=== PATIENT | female | born 1995 | race Caucasian/White ===

== ENCOUNTER 2019-04-22 09:51 | Emergency (ER) | payer OTHER ==
--- NOTE | 2019-04-22 09:56 | ER Report ---
History and Physical Time Seen By MD: 11:00 HPI/ROS CHIEF COMPLAINT: Back pain HISTORY OF PRESENT ILLNESS: Patient presents with complaint of upper thoracic back pain that began yesterday just prior to work. She denies having any specific injury or straining that may have caused the symptoms. She states that she took some Tylenol with codeine that she uses for occasional low back pain at night to help her sleep. Today she was very stiff has difficulty raising her arms above her head secondary to muscle tightness and pain. No numbness or tingling noted. Noted by the patient. REVIEW OF SYSTEMS: Respiratory: No cough, no dyspnea. Cardiovascular: No chest pain, no palpitations. Gastrointestinal: No vomiting, no abdominal pain. Musculoskeletal: Thoracic back pain Allergies: Coded Allergies: No Known Drug Allergies (Unverified , 04/22/19) Home Meds Active Scripts Diazepam (VALIUM) 5 Mg Tablet, 5 MG PO Q8H for Muscle Relaxant, #15 TAB 0 Refills Prov:JEMAL HAINES MD 04/22/19 Naproxen (NAPROXEN) 375 Mg Tablet, 375 MG PO TID for PAIN, #30 TAB 0 Refills Prov:JEMAL HAINES MD 04/22/19 Reported Medications Fluticasone Prop 50 Mcg Ns (FLONASE 50 MCG NS) 16 Gm [place].susp, 2 SPRAYS NS QDAY, BOT 04/22/19 Past Medical/Surgical History History of low back pain Constitutional Vital Sign - Last 24 Hours 04/22/19 04/22/19 04/22/19 04/22/19 10:04 10:06 10:21 10:51 Temp 98.7 Pulse 80 67 86 Resp 20 B/P (MAP) 134/104 (114) 130/104 Pulse Ox 92 96 96 O2 Delivery Room Air 04/22/19 11:21 Pulse 69 Pulse Ox 94 Physical Exam General appearance: alert no distress. Back: Thoracic spine has bilateral paraspinal tenderness to the lower thoracic spine Lumbar spine has no spinal tenderness no paraspinal tenderness Gastroinal: Abdomen is soft, non tender, no masses.. Skin: No lesions and no rashes. Vascular: Normal capillary refill and pulses to feet. Neurological: Motor function: leg strength normal and symmetric for both legs Medical Decision Making EKG/Imaging Imaging FACILITY: [facility] [place] PATIENT NAME: Lizeth Awan : 1995 MR: [id number] V: [id number] EXAM DATE: ORDERING PHYSICIAN: JEMAL HAINES TECHNOLOGIST: Location: [facility] [place] Patient: Lizeth Awan : 1995 Visit/Account:[id number] Date of Sevice: 04/22/2019 Thoracic spine, 3 views. HISTORY: T-spine pain. COMPARISON: None. Metal snaps project on the neck. A few vague densities project on the upper thoracic spine probably representing superimposition of bony structures. A minimal dextrocurvature is present in the midthoracic spine. The thoracic discs are normal in height. Bony alignment is otherwise unremarkable. No acute fractures are identified. The cervical-thoracic junction and the posterior elements are partially obscured by the shoulders and ribs. IMPRESSION: Essentially negative thoracic spine. Report Dictated By: Semaj Alexis MD at 04/22/2019 11:23 AM Report E-Signed By: Semaj Alexis MD at 04/22/2019 11:26 AM [id number] ED Course/Re-evaluation ED Course FACILITY: [facility] [place] PATIENT NAME: Lizeth Awan : 1995 MR: [id number] V: [id number] EXAM DATE: ORDERING PHYSICIAN: JEMAL HAINES TECHNOLOGIST: Location: [facility] [place] Patient: Lizeth Awan : 1995 Visit/Account:[id number] Date of Sevice: 04/22/2019 Thoracic spine, 3 views. HISTORY: T-spine pain. COMPARISON: None. Metal snaps project on the neck. A few vague densities project on the upper thoracic spine probably representing superimposition of bony structures. A minimal dextrocurvature is present in the midthoracic spine. The thoracic discs are normal in height. Bony alignment is otherwise unremarkable. No acute fractures are identified. The cervical-thoracic junction and the posterior elements are partially obscured by the shoulders and ribs. IMPRESSION: Essentially negative thoracic spine. Report Dictated By: Semaj Alexis MD at 04/22/2019 11:23 AM Report E-Signed By: Semaj Alexis MD at 04/22/2019 11:26 AM [id number] Decision to Disposition Date: Apr 22, 2019 Decision to Disposition Time: 11:50 Depart Departure Latest Vital Signs Vital Signs Date Time Temp Pulse Resp B/P (MAP) Pulse Ox O2 Delivery O2 Flow Rate FiO2 04/22/19 11:21 69 94 04/22/19 10:06 98.7 20 130/104 Room Air Impression: Primary Impression: Thoracic back pain Condition: Improved Disposition: HOME OR SELF-CARE New Scripts Diazepam (VALIUM) 5 Mg Tablet 5 MG PO Q8H for Muscle Relaxant, #15 TAB 0 Refills Prov: JEMAL HAINES MD 04/22/19 Naproxen (NAPROXEN) 375 Mg Tablet 375 MG PO TID for PAIN, #30 TAB 0 Refills Prov: JEMAL HAINES MD 04/22/19 Departure Forms: ER Transition Record, Medications Reconciliation, Off Work/School Form, School or Work Release?: Work Number of days to be released: 1 Patient Portal Information Patient Instructions: Thoracic Back Strain (ED) Additional Instructions: symptoms if symptoms persist greater than 7-10 days you should follow-up with your primary care provider; if symptoms worsen at any time please return to the emergency department for reevaluation Problem Qualifiers Primary Impression: Thoracic back pain Chronicity: acute Back pain laterality: bilateral Qualified Codes: M54.6 - Pain in thoracic spine JEMAL HAINES MD Apr 22, 2019 09:56
[2019-04-22] MEDS ORDERED: FLUT16SP19 NS (10:11)
[2019-04-22] MEDS ORDERED: NAPROXEN 500 MG TAB PO ONE (10:55)
--- NOTE | 2019-04-22 11:32 | RADIOLOGY IMAGING REPORT ---
FACILITY: [facility] PATIENT NAME: Lizeth Awan : 1995 MR: [id number] V: [id number] EXAM DATE: ORDERING PHYSICIAN: JEMAL HAINES TECHNOLOGIST: Location: [facility] Patient: Lizeth Awan : 1995 Visit/Account:[id number] Date of Sevice: 04/22/2019 Thoracic spine, 3 views. HISTORY: T-spine pain. COMPARISON: None. Metal snaps project on the neck. A few vague densities project on the upper thoracic spine probably r epresenting superimposition of bony structures. A minimal dextrocurvature is present in the midthorac ic spine. The thoracic discs are normal in height. Bony alignment is otherwise unremarkable. No acu te fractures are identified. The cervical-thoracic junction and the posterior elements are partially obscured by the shoulders and ribs. IMPRESSION: Essentially negative thoracic spine. Report Dictated By: Semaj Alexis MD at 04/22/2019 11:23 AM Report E-Signed By: Semaj Alexis MD at 04/22/2019 11:26 AM [id number]
[2019-04-22] MEDS ORDERED: NAPR375T44 PO (11:53)
[2019-04-22] MEDS ORDERED: DIA5 PO (11:53)
[2019-04-22 12:20] VITALS: BP 111/87
== END 2019-04-22 12:24 | disposition home or self-care (01) ==
LOC: ER 09:59
DX: M54.6 Pain in thoracic spine (principal)
CPT/HCPCS: 72072; 99283